=== PATIENT | male | born 1940 | race Caucasian/White ===

== ENCOUNTER 2016-07-19 06:38 | Emergency (ER) | payer MEDICARE, MEDICAID ==
[2016-07-19] MEDS ORDERED: IPRATROPIUM/ALBUTEROL 0.5-2.5 MG/3 ML AMPUL NEB ONE (06:56)
[2016-07-19] MEDS ORDERED: CROMOLYN SODIUM NASAL SPRAY (5.2 MG/SPRAY) 26 ML NASL ONE (06:56)
--- NOTE | 2016-07-19 06:56 | ER Document Report ---
ED General - General Chief Complaint: Shortness Of Breath Stated Complaint: GENERAL WEAKNESS Mode of Arrival: Ambulatory Information source: Patient Notes: 76 yr old male with hx of chf, dialysis last on sat, on inhaler presents iwth complaints of sob that occured when they raised the heat at the care facility. pt notes this happens every time, and when he gets outside he can breath better. Pt currently denies any complaints at all. States his symptoms have resolved. pt does have some nasal drainage, requests treatment for sinusitis TRAVEL OUTSIDE OF THE [place] IN LAST 30 DAYS: No - HPI Onset: Just prior to arrival Onset/Duration: Sudden Quality of pain: No pain Severity: Mild Pain Level: Denies Associated symptoms: Shortness of breath Exacerbated by: Denies Relieved by: Denies Similar symptoms previously: No Recently seen / treated by doctor: No - Related Data Allergies/Adverse Reactions: Penicillins Allergy (Unknown, Verified 01/14/15 04:50) Past Medical History - Social History Smoking Status: Never Smoker Cigarette use (# per day): No Chew tobacco use (# tins/day): No Smoking Education Provided: No Family History: None, Reviewed & Not Pertinent - Past Medical History Cardiac Medical History: Reports: Hx Congestive Heart Failure, 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 ,on warfarin, Hx Hypercholesterolemia, Hx Hypertension Pulmonary Medical History: Reports: Hx COPD Neurological Medical History: Denies: Hx Seizures Endocrine Medical History: Reports: Hx Hypothyroidism Renal/ Medical History: Reports: Hx End Stage Renal Disease Musculoskeltal Medical History: Reports Hx Arthritis Past Surgical History: Reports: Hx Inguinal Hernia - Bilateral inguinal hernia repairs., Hx Vascular Surgery - Right subclavian PermCath - Immunizations Immunizations up to date: Yes Hx Diphtheria, Pertussis, Tetanus Vaccination: No Review of Systems - Review of Systems Notes: REVIEW OF SYSTEMS: CONSTITUTIONAL : Denies fever, chills, or sweats. Denies recent illness. EENT: Admits nasal discharge CARDIOVASCULAR: Denies chest pain. Denies palpitations or racing or irregular heart beat. Denies ankle edema. RESPIRATORY: Admits to shortness breath GASTROINTESTINAL: Denies abdominal pain or distention. Denies nausea, vomiting , or diarrhea. Denies blood in vomitus, stools, or per rectum. Denies black, tarry stools. Denies constipation. GENITOURINARY: Denies difficulty urinating, painful urination, burning, frequency, blood in urine, or discharge. MUSCULOSKELETAL: Denies back or neck pain or stiffness. Denies joint pain or swelling. SKIN: Denies rash, lesions or sores. HEMATOLOGIC : Denies easy bruising or bleeding. LYMPHATIC: Denies swollen, enlarged glands. NEUROLOGICAL: Denies confusion or altered mental status. Denies passing out or loss of consciousness. Denies dizziness or lightheadedness. Denies headache. Denies weakness or paralysis or loss of use of either side. Denies problems with gait or speech. Denies sensory loss, numbness, or tingling. Denies seizures. PSYCHIATRIC: Denies anxiety or stress. Denies depression, suicidal ideation, or homicidal ideation. ALL OTHER SYSTEMS REVIEWED AND NEGATIVE. Dictation was performed using [employer] voice recognition software PHYSICAL EXAMINATION: GENERAL: Chronically ill appearing male no acute distress HEAD: Atraumatic, normocephalic. EYES: Pupils equal round and reactive to light, extraocular movements intact, sclera anicteric, conjunctiva are normal. ENT: Nares patent, oropharynx clear without exudates. Moist mucous membranes. NECK: Normal range of motion, supple without lymphadenopathy LUNGS: Faint expiratory wheezing left upper lobe HEART: Regular rate and rhythm without murmurs ABDOMEN: Soft, nontender, nondistended abdomen. No guarding, no rebound. No masses appreciated. Musculoskeletal: +1 pitting edema lower extremities bilateral NEUROLOGICAL: Cranial nerves grossly intact. Normal speech, normal gait. Normal sensory, motor exams PSYCH: Normal mood, normal affect. SKIN: Warm, Dry, normal turgor, no rashes or lesions noted. Physical Exam - Vital signs Vitals: Pulse Ox 96 07/19/16 07:30 Course - Re-evaluation Re-evalutation: 07/19/16 06:56 Patient symptoms have completely resolved however given his chronic medical problems I do believe a further evaluation is required at this time 07/19/16 08:11 Laboratory imaging note no significant abnormalities, patient is in no distress wishes to be discharged After performing a Medical Screening Examination, I estimate there is LOW risk for ACUTE CORONARY SYNDROME, RESPIRATORY FAILURE, SEPSIS OR MENINGITIS, thus I consider the discharge disposition reasonable. The patient and I have discussed the diagnosis and risks, and we agree with discharging home with close follow- up. We also discussed returning to the Emergency Department immediately if new or worsening symptoms occur. We have discussed the symptoms which are most concerning (e.g., changing or worsening pain, trouble swallowing or breathing, neck stiffness, fever) that necessitate immediate return. - Vital Signs Vital signs: Temp Pulse Resp BP Pulse Ox 84 25 H 161/66 H 95 07/19/16 07:40 07/19/16 08:01 07/19/16 08:01 07/19/16 08:01 - Laboratory Result Diagrams: 07/19/16 07:00 07/19/16 07:00 Laboratory results interpreted by me: 07/19/16 07/19/16 07/19/16 07:00 07:00 07:00 WBC 12.6 H RBC 3.73 L Hgb 11.3 L Hct 36.1 L MCHC 31.3 L RDW 15.4 H Monocytes % 2.8 L Absolute Lymphocytes 4.9 H BUN 50 H Creatinine 5.14 H Est GFR ( Amer) 13 L Est GFR (Non-Af Amer) 11 L Glucose 112 H Alkaline Phosphatase 161 H Creatine Kinase 31 L NT-Pro-B Natriuret Pep 48481 H Total Protein 5.9 L Albumin 3.4 L - Diagnostic Test Radiology reviewed: Image reviewed, Reports reviewed - EKG Interpretation by Me EKG shows normal: Sinus rhythm, [place], Intervals, QRS Complexes When compared to previous EKG there are: Changes noted - mild changes noted , potassium nrmal Discharge - Discharge Clinical Impression: COPD (chronic obstructive pulmonary disease) Qualifiers: COPD type: unspecified COPD Qualified Code(s): J44.9 - Chronic obstructive pulmonary disease, unspecified Condition: Stable Disposition: HOME, SELF-CARE Instructions: Chronic Obstructive Lung Disease ([facility]) Prescriptions: Prednisone [Deltasone 20 mg Tablet] 3 tab PO DAILY 5 Days Referrals: MINESH GRIFFIN MD [Primary Care Provider] - 07/20/16
[2016-07-19 07:14] LABS: ABSOLUTE BASOPHILS # (AUTO) 0.1 10^3/uL (0.0-0.2); ABSOLUTE EOSINOPHILS # (AUTO) 0.3 10^3/uL (0.0-0.6); ABSOLUTE LYMPHOCYTES (AUTO) 4.9 10^3/uL (0.5-4.7); ABSOLUTE MONOCYTES (AUTO) 0.4 10^3/uL (0.1-1.4); ABSOLUTE NEUT (AUTO) 6.9 10^3/uL (1.7-8.2); EOSINOPHILS % (AUTO) 2.7 % (0-6); HEMATOCRIT 36.1 % (37.9-51.0); HEMOGLOBIN 11.3 g/dL (13.5-17.0); HGB HCT DIFFERENCE -2.2; LYMPHOCYTES % (AUTO) 38.9 % (13-45); MEAN CORPUSCULAR HEMOGLOBIN 30.3 pg (27.0-33.4); MEAN CORPUSCULAR HGB CONC 31.3 g/dL (32.0-36.0); MEAN CORPUSCULAR VOLUME 97 fl (80-97); MONOCYTES % (AUTO) 2.8 % (3-13); RED BLOOD COUNT 3.73 10^6/uL (4.35-5.55); RED CELL DISTRIBUTION WIDTH 15.4 % (11.5-14.0); SEGMENTED NEUTROPHILS % (AUTO) 54.6 % (42-78); WHITE BLOOD COUNT 12.6 10^3/uL (4.0-10.5)
[2016-07-19 07:36] LABS: ALANINE AMINOTRANSFERASE 40 U/L (21-72); ALBUMIN 3.4 g/dL (3.5-5.0); ALKALINE PHOSPHATASE 161 U/L (38-126); ANION GAP 18 (5-19); ASPARTATE AMINO TRANSFERASE 29 U/L (17-59); BILIRUBIN,TOTAL 0.7 mg/dL (0.2-1.3); BLOOD UREA NITROGEN 50 mg/dL (7-20); CALCIUM 8.5 mg/dL (8.4-10.2); CARBON DIOXIDE 23 mmol/L (22-30); CHLORIDE 100 mmol/L (98-107); CREATINE KINASE 31 U/L (55-170); CREATININE RESULT 5.14 mg/dL (0.52-1.25); GLUCOSE 112 mg/dL (75-110); POTASSIUM 3.6 mmol/L (3.6-5.0); SODIUM 140.7 mmol/L (137-145); TOTAL PROTEIN 5.9 g/dL (6.3-8.2)
[2016-07-19 07:48] LABS: CREATINE KINASE MB 0.97 ng/mL (<4.55)
[2016-07-19 07:54] LABS: TROPONIN I 0.034 ng/mL
[2016-07-19] MEDS ORDERED: PREDNISONE 20 MG TABLET PO ONE (08:14)
--- NOTE | 2016-07-19 08:21 | EKG REPORT ---
SEVERITY:- ABNORMAL ECG - SINUS RHYTHM FIRST DEGREE AV BLOCK LEFT ANTERIOR FASCICULAR BLOCK. : Confirmed by: Roberto Clark MD 19-Jul-2016 08:20:15
[2016-07-19 09:03] VITALS: BP 159/68
== END 2016-07-19 09:03 | disposition home or self-care (01) ==
LOC: ER 06:38
DX: J44.9 Chronic obstructive pulmonary disease, unspecified (principal); I12.0 Hypertensive chronic kidney disease with stage 5 chronic kidney disease or end stage renal disease; N18.6 End stage renal disease; Z99.2 Dependence on renal dialysis; J34.89 Other specified disorders of nose and nasal sinuses; R60.0 Localized edema; Z88.0 Allergy status to penicillin; Z86.718 Personal history of other venous thrombosis and embolism
CPT/HCPCS: 93005; 94640; 99285; 36415; 82553; 82550; 85025; 80053; 84484; 83880; 71010; 93010; A9270 ×3; J3490; J7512; J7620